=== PATIENT | female | born 1950 | race Caucasian/White ===

== ENCOUNTER → 2017-12-17 08:29 | Outpatient (CLI) | payer MEDICARE, OTHER, SELFPAY ==
--- NOTE | 2017-12-17 | DI.MG.S_ITS ---
UNILATERAL RIGHT DIGITAL DIAGNOSTIC MAMMOGRAM 3D/2D SHORT-TERM FOLLOW-UP: 12/17/2017 CLINICAL: Patient returns for a 6 month follow up of the right breast. Comparison is made to exams dated: 06/17/2017 mammogram, 06/02/2017 mammogram - [facility], 03/02/2013 mammogram - [facility], and 06/17/2017 ultrasound - [facility]. The tissue of the right breast is predominantly fatty. There is a stable 0.6 cm oval equal density mass with a circumscribed margin in the right breast central to the nipple middle depth when compared with the mammogram dated 06/17/17. No other significant masses or calcifications are seen in the breast. IMPRESSION: INCOMPLETE: NEEDS ADDITIONAL IMAGING EVALUATION The stable 0.6 cm oval equal density mass in the right breast is indeterminate. An ultrasound is recommended. This exam was interpreted at Station ID: [id number]. NOTE: For mammograms, a report in lay terms will be sent to the patient. Approximately 15% of breast malignancies will not be visualized mammographically. In the management of a palpable breast mass, a negative mammogram must not discourage biopsy of a clinically suspicious lesion. Electronically Signed By: Shanika Lazo M.D. lk/:12/17/2017 09:32:46 letter sent: Additional Imaging Needed ACR BI-RADS Category 0: Incomplete 3340F
--- NOTE | 2017-12-17 | DI.US.S_ITS ---
ULTRASOUND OF RIGHT BREAST: 12/17/2017 CLINICAL: Patient returns for a 6 month follow up of the right breast. Comparison is made to exams dated: 12/17/2017 mammogram, 06/17/2017 ultrasound, 06/17/2017 mammogram, and 06/02/2017 mammogram - [facility]. Color flow ultrasound of the right breast was performed on the areas of interest. Grayson scale images of the real-time examination were reviewed. There is a 0.7 cm x 0.4 cm x 0.6 cm oval mass in the right breast at 9 o'clock posterior depth. This oval mass is hypoechoic. This is similar to the prior ultrasound dated 12/17/17. IMPRESSION: PROBABLY BENIGN - FOLLOW-UP RECOMMENDED The 0.7 cm x 0.4 cm x 0.6 cm oval mass in the right breast is probably benign. A follow-up mammogram and an ultrasound in 6 months is recommended to demonstrate stability. This exam was interpreted at Station ID: [id number]. Electronically Signed By: Shanika corbett/:12/17/2017 12:50:14 letter sent: Followup Recommended Ultrasound BI-RADS: 3 Probably benign
== END ==
PROVIDERS: Family Provider Family Medicine; PCP Family Medicine; Visit Provider Family Medicine
DX: R92.8 Other abnormal and inconclusive findings on diagnostic imaging of breast (principal); N63.10 Unspecified lump in the right breast, unspecified quadrant
CPT/HCPCS: 76642; 77065; G0279

== ENCOUNTER → 2018-06-29 13:32 | Outpatient (CLI) | payer MEDICARE, OTHER, SELFPAY ==
--- NOTE | 2018-06-29 | DI.US.S_ITS ---
LIMITED ULTRASOUND OF RIGHT BREAST: 06/29/2018 CLINICAL: 6 month follow-up of mass. Comparison is made to exams dated: 06/29/2018 mammogram, 12/17/2017 ultrasound, 12/17/2017 mammogram, 06/17/2017 ultrasound, 06/17/2017 mammogram, and 06/02/2017 mammogram - [facility]. Ultrasound of the right breast 7-9 o'clock region was performed. The posterior depth 9 o'clock abnormality seen on previous ultrasound exams was not seen today. There were no sonographic findings to explain the stable mammographic finding. At the 7 o'clock position, a biopsied, marked lesion was seen. No abnormalities were seen sonographically in the right breast. IMPRESSION: NEGATIVE There is no sonographic evidence of malignancy. technician terminal and repeater stability of the mammographically seen nodule suggests benignity. Return to annual mammogram screening schedule is recommended. Findings and recommendations were conveyed to the patient. This exam was interpreted at Station ID: [id number]. Electronically Signed By: Linette olguin/:06/29/2018 16:18:14 letter sent: Normal Exam Ultrasound BI-RADS: 1 Negative
--- NOTE | 2018-06-29 | DI.MG.S_ITS ---
BILATERAL DIGITAL DIAGNOSTIC MAMMOGRAM 3D/2D SHORT-TERM FOLLOW-UP: 06/29/2018 CLINICAL: Patient returns for 6 month follow up of right breast, due for bilateral exam. Comparison is made to exams dated: 12/17/2017 mammogram, 06/17/2017 mammogram, and 06/02/2017 mammogram - [facility]. The tissue of both breasts is predominantly fatty. There is a stable 0.7 cm oval mass with a circumscribed margin in the right breast at 9 o'clock middle depth. No other significant masses, calcifications, or other findings are seen in either breast. IMPRESSION: INCOMPLETE: NEEDS ADDITIONAL IMAGING EVALUATION The stable 0.7 cm oval mass in the right breast is stable compared to multiple prior studies dating back to 03/02/2013. An ultrasound evaluation to confirm stability is recommended and was performed. No mammographic evidence of malignancy in the left breast. This exam was interpreted at Station ID: [id number]. NOTE: For mammograms, a report in lay terms will be sent to the patient. Approximately 15% of breast malignancies will not be visualized mammographically. In the management of a palpable breast mass, a negative mammogram must not discourage biopsy of a clinically suspicious lesion. Electronically Signed By: Linette olguin/:06/29/2018 16:10:46 ACR BI-RADS Category 0: Incomplete 3340F
== END ==
PROVIDERS: PCP Family Medicine; Visit Provider Family Medicine
DX: R92.8 Other abnormal and inconclusive findings on diagnostic imaging of breast (principal); N63.24 Unspecified lump in the left breast, lower inner quadrant
CPT/HCPCS: 76642; 77066; G0279

== ENCOUNTER → 2021-08-06 12:46 | Outpatient (CLI) | payer MEDICARE, OTHER, SELFPAY ==
--- NOTE | 2021-08-06 | DI.MG.S_ITS ---
BILATERAL DIGITAL SCREENING MAMMOGRAM 3D/2D WITH CAD: 08/06/2021 CLINICAL: Routine screening. Comparison is made to exams dated: 06/29/2018 mammogram, 12/17/2017 ultrasound, 06/29/2018 ultrasound, 06/17/2017 mammogram, and 06/02/2017 mammogram - [facility]. The tissue of both breasts is predominantly fatty. Current study was also evaluated with a Computer Aided Detection (CAD) system. No significant masses, calcifications, or other findings are seen in either breast. There has been no significant interval change. IMPRESSION: NEGATIVE There is no mammographic evidence of malignancy. A 1 year screening mammogram is recommended. This exam was interpreted at Station ID: [id number]. NOTE: For mammograms, a report in lay terms will be sent to the patient. Approximately 15% of breast malignancies will not be visualized mammographically. In the management of a palpable breast mass, a negative mammogram must not discourage biopsy of a clinically suspicious lesion. Electronically Signed By: Shanika corbett/moody:08/06/2021 13:45:58 letter sent: Normal Exam ACR BI-RADS Category 1: Negative [id number]
== END ==
PROVIDERS: PCP Family Medicine; Referring Provider Family Medicine; Visit Provider Family Medicine
DX: Z12.31 Encounter for screening mammogram for malignant neoplasm of breast (principal)
CPT/HCPCS: 77063; 77067